=== PATIENT | female | born 1945 | race Caucasian/White ===

== ENCOUNTER 2022-03-23 15:48 | Inpatient (IN) | payer MEDICAID ==
[~2022-03-23] VITALS: Ht 152.4 cm; Wt 94.3 kg
[2022-03-24 16:00] VITALS: BP 123/43
[2022-03-24 16:02] VITALS: BP 123/43
[2022-03-24] MEDS ORDERED: NITROGLYCERIN 0.4MG TABLET SL SL PRN (16:45)
[2022-03-24] MEDS ORDERED: ACETAMINOPHEN 325MG TABLET PO PRN (16:45)
[2022-03-24] MEDS ORDERED: HEPARIN 60 UNITS/KG BOLUS IV SCH (18:00)
[2022-03-24 18:03] VITALS: BP 139/65
[2022-03-24 18:19] LABS: BASOPHILS % 0.5 % (0.0-2.0); EOSINOPHILS % 2.7 % (0.0-5.0); HEMATOCRIT. 37.6 % (36.0-48.0); HEMOGLOBIN. 12.5 g/dL (12.0-16.0); LYMPHOCYTES % 17.8 % (20.0-50.0); MEAN CORPUSCULAR HEMOGLOBIN 30.3 pg (28.0-32.0); MEAN CORPUSCULAR VOLUME 91.5 fL (81.0-99.0); MEAN PLATELET VOLUME 8.4 fl (7.4-10.4); MONOCYTES % 9.3 % (2.0-8.0); NEUTROPHILS % 69.7 % (40.0-76.0); PLATELET 196 x1000/uL (130-400); RED BLOOD CELL COUNT 4.11 mill/uL (4.2-5.4); RED CELL DISTRIBUTION WIDTH 15.7 % (11.6-14.6)
[2022-03-24 18:27] LABS: PARTIAL THROMBOPLASTIN TIME 50.5 sec (23.4-31.0); PROTHROMBIN TIME 11.1 sec (9.6-11.0)
[2022-03-24 18:35] LABS: CHLORIDE 106 mEq/L (98-107)
[2022-03-24] MEDS: HEPARIN 25,000 UNITS PREMIX 250 ML IV SCH (18:59)
[2022-03-24 20:02] VITALS: BP 109/65
[2022-03-24] MEDS: ATORVASTATIN CALCIUM 40MG TABLET PO SCH (22:19)
[2022-03-24] MEDS: METOPROLOL TARTRATE 25MG TABLET PO SCH (22:20)
[2022-03-24] MEDS: NITROGLYCERIN OINT 1GM/INCH UDPKT TD SCH (22:20)
[2022-03-25] VITALS (7 sets, daily range): BP systolic 91–120; BP diastolic 38–72
[2022-03-25] MEDS ORDERED: HEPARIN BOLUS PRN aPTT 30-44 IV (02:00)
[2022-03-25] MEDS ORDERED: HEPARIN BOLUS PRN aPTT <30 IV (02:00)
[2022-03-25] MEDS: NITROGLYCERIN OINT 1GM/INCH UDPKT TD SCH ×3 (06:00→21:11)
[2022-03-25] MEDS: ASPIRIN 81MG EC TABLET PO SCH (09:53)
[2022-03-25] MEDS: METOPROLOL TARTRATE 25MG TABLET PO SCH ×2 (09:53→21:00)
[2022-03-25] MEDS: KETOROLAC 15MG/ML VIAL IV PRN (09:55)
[2022-03-25] MEDS ORDERED: SODIUM CHLORIDE 0.9% 500 ML IV ONE (10:00)
[2022-03-25] MEDS: ONDANSETRON HCL 4MG/2ML INJ IV PRN (15:04)
[2022-03-25 16:50] LABS: BASOPHILS % 0.7 % (0.0-2.0); EOSINOPHILS % 3.7 % (0.0-5.0); HEMATOCRIT. 35.4 % (36.0-48.0); HEMOGLOBIN. 11.8 g/dL (12.0-16.0); LYMPHOCYTES % 20.2 % (20.0-50.0); MEAN CORPUSCULAR HEMOGLOBIN 30.5 pg (28.0-32.0); MEAN CORPUSCULAR VOLUME 91.4 fL (81.0-99.0); MEAN PLATELET VOLUME 8.7 fl (7.4-10.4); MONOCYTES % 9.2 % (2.0-8.0); NEUTROPHILS % 66.2 % (40.0-76.0); PLATELET 199 x1000/uL (130-400); RED BLOOD CELL COUNT 3.88 mill/uL (4.2-5.4); RED CELL DISTRIBUTION WIDTH 15.7 % (11.6-14.6)
[2022-03-25 17:03] LABS: INR 1.1; PARTIAL THROMBOPLASTIN TIME 57.8 sec (23.4-31.0); PROTHROMBIN TIME 11.4 sec (9.6-11.0)
[2022-03-25] MEDS: ATORVASTATIN CALCIUM 40MG TABLET PO SCH (21:10)
[2022-03-26] VITALS: BP 159/60
[2022-03-26 04:00] VITALS: BP 100/57
[2022-03-26] MEDS: NITROGLYCERIN OINT 1GM/INCH UDPKT TD SCH ×3 (06:40→21:21)
[2022-03-26 08:00] VITALS: BP 151/95
[2022-03-26] MEDS: HEPARIN 25,000 UNITS PREMIX 250 ML IV SCH (08:02)
[2022-03-26] MEDS: ASPIRIN 81MG EC TABLET PO SCH (08:20)
[2022-03-26] MEDS: METOPROLOL TARTRATE 25MG TABLET PO SCH (08:20)
[2022-03-26] MEDS: ONDANSETRON HCL 4MG/2ML INJ IV PRN ×2 (08:20→17:28)
[2022-03-26] MEDS ORDERED: METOPROLOL SUCCINATE 50MG ER TABLET PO SCH (09:30)
[2022-03-26] MEDS ORDERED: FUROSEMIDE 20MG/2ML VIAL IVP NR (09:30)
[2022-03-26] MEDS ORDERED: MORPHINE SULFATE 2 MG/ML CPJ (NOT FOR IM USE) IV PRN (11:45)
[2022-03-26 12:00] VITALS: BP 99/55
[2022-03-26] MEDS ORDERED: NALOXONE HCL 0.4MG/ML VIAL IV PRN (12:00)
[2022-03-26 16:00] VITALS: BP 105/70
[2022-03-26 16:42] LABS: HEMATOCRIT 35.7 % (36.0-48.0); HEMOGLOBIN 11.6 g/dL (12.0-16.0); MEAN CORPUSCULAR HEMOGLOBIN 30.1 pg (28.0-32.0); MEAN CORPUSCULAR VOLUME 92.4 fL (81.0-99.0); PLATELET 203 x1000/uL (130-400); RED BLOOD CELL COUNT 3.86 mill/uL (4.2-5.4); RED CELL DISTRIBUTION WIDTH 15.6 % (11.6-14.6)
[2022-03-26] MEDS: KETOROLAC 15MG/ML VIAL IV PRN (17:28)
[2022-03-26 20:00] VITALS: BP 111/60
[2022-03-26] MEDS: ATORVASTATIN CALCIUM 40MG TABLET PO SCH (21:21)
[2022-03-27] VITALS: BP 111/60
[2022-03-27 04:00] VITALS: BP 113/42
[2022-03-27] MEDS: NITROGLYCERIN OINT 1GM/INCH UDPKT TD SCH ×2 (06:22→14:00)
[2022-03-27 08:00] VITALS: BP 103/76
[2022-03-27] MEDS: ASPIRIN 81MG EC TABLET PO SCH (08:03)
[2022-03-27] MEDS ORDERED: LIDOCAINE HCL/PF 1% 10 MG/ML 5ML VIAL ONE (08:22)
[2022-03-27] MEDS ORDERED: HEPARIN 1000 UNITS/ML 10ML ONE (08:22)
[2022-03-27] MEDS ORDERED: VERAPAMIL HCL 2.5 MG/1 ML 2ML VIAL IV ONE (08:22)
[2022-03-27] MEDS ORDERED: DIPHENHYDRAMINE 50MG/ML VIAL ONE (08:22)
[2022-03-27] MEDS ORDERED: IODIXANOL 320MG/ML 100 ML BOTTLE IV ONE (08:22)
[2022-03-27] MEDS ORDERED: FENTANYL CITRATE/PF 50MCG/ML 2ML VIAL ONE (08:36)
[2022-03-27] MEDS ORDERED: MIDAZOLAM HCL 2 MG/2 ML VIAL ONE (08:37)
[2022-03-27] MEDS ORDERED: SODIUM CHLORIDE 0.45% 250 ML IV ONE (09:45)
[2022-03-27] MEDS ORDERED: ATROPINE SULFATE 1MG/10ML SYR IV PRN (09:45)
[2022-03-27] MEDS: ISOSORBIDE MONONITRATE 30MG TABLET SR 24HR PO SCH ×2 (10:00→12:10)
[2022-03-27 12:05] VITALS: BP 88/45
[2022-03-27 16:00] VITALS: BP 128/75
[2022-03-27 18:11] VITALS: BP 125/75
== END 2022-03-27 18:50 | disposition home or self-care (01) | DRG 190 ==
LOC: 3WST 03-24 15:53
PROVIDERS: ADMIT Internal Medicine; ATTEND Internal Medicine
PROC: 4A023N7 Measurement of Cardiac Sampling and Pressure, Left Heart, Percutaneous Approach (ICD-10-PCS; principal; 2022-03-27)
PROC: B211YZZ Fluoroscopy of Multiple Coronary Arteries using Other Contrast (ICD-10-PCS; 2022-03-27)
PROC: B215YZZ Fluoroscopy of Left Heart using Other Contrast (ICD-10-PCS; 2022-03-27)
DX: I25.10 Atherosclerotic heart disease of native coronary artery without angina pectoris (principal); I21.A1 Myocardial infarction type 2; N17.0 Acute kidney failure with tubular necrosis; I50.21 Acute systolic (congestive) heart failure; E44.0 Moderate protein-calorie malnutrition; I11.0 Hypertensive heart disease with heart failure; I42.9 Cardiomyopathy, unspecified; E66.9 Obesity, unspecified; K59.00 Constipation, unspecified; Z20.822 Contact with and (suspected) exposure to COVID-19; Z68.41 Body mass index [BMI] 40.0-44.9, adult; I25.2 Old myocardial infarction
CPT/HCPCS: 36415; 80048; 80053; 80061; 83880; 84484; 85025; 85027; 85347; 87426; 93005; 93306; 93458; C1769; C1887; C1893; J1200; J1644; J1885; J1940; J2250; J2405; J3010; J3490; Q9967